=== PATIENT | male | born 1965 | race Caucasian/White ===

== ENCOUNTER 2024-02-26 03:03 | Emergency (ER) | payer MEDICARE ==
[~2024-02-26] VITALS: Ht 180.3 cm; Wt 90.9 kg
[2024-02-26 04:41] VITALS: BP 144/90; PULSE 70; TEMP 98.3
== END 2024-02-26 04:41 | disposition home or self-care (01) ==
LOC: COL.ER 03:03
DX: R10.32 Left lower quadrant pain (principal)